=== PATIENT | male | born 1980 | race Caucasian/White ===

== ENCOUNTER 2017-06-27 12:15 | Emergency (ER) | payer SELFPAY ==
[2017-06-27] MEDS ORDERED: Ketorolac Tromethamine 30 MG/ML VIAL ONE (12:35)
[2017-06-27] MEDS ORDERED: Ondansetron HCl/PF 4 MG/2 ML Vial ONE (12:35)
[2017-06-27] MEDS ORDERED: Adacel (T-DAP) 0.5 ML VIAL ONE (12:40)
[2017-06-27 12:59] LABS: ALT (SGPT) 41 U/L (8-55); AST (SGOT) 34 U/L (5-34); Albumin 5.2 g/dL (3.5-5.0); Alkaline Phosphatase 92 U/L (40-150); Anion Gap 16 mmol/L (10-20); BUN (Urea Nitrogen) 12 mg/dL (8.9-20.6); Bilirubin, Total 0.6 mg/dL (0.2-1.2); Calc. Creatinine Clearance 0 mL/min (70-130); Calcium 10.6 mg/dL (7.8-10.44); Carbon Dioxide 23 mmol/L (22-29); Chloride 106 mmol/L (98-107); Estimated GFR-MDRD Greater than 90; Globulin 4.2 g/dL (2.4-3.5); Glucose 110 mg/dL (70-105); Lipase 10 U/L (8-78); Potassium 4.2 mmol/L (3.5-5.1); Protein, Total 9.4 g/dL (6.0-8.3); Sodium 141 mmol/L (136-145)
[2017-06-27 13:00] LABS: #Basophils 0.1 thou/uL (0.0-0.2); #Eosinphils 0.1 thou/uL (0.0-0.7); #Lymphocytes 1.4 thou/uL (1.20-3.40); #Monocytes 0.6 thou/uL (0.11-0.59); #Neutrophils 8.6 thou/uL (1.40-6.50); %Basophils 1.1 % (0.0-1.0); %Eosinophils 0.6 % (0.0-10.0); %Lymphocytes 12.9 % (21.0-51.0); %Monocytes 5.5 % (0.0-10.0); %Neutrophils 79.9 % (42.0-75.0); Band 4 % (5-11); Hemoglobin 17.2 g/dL (14.0-18.0); Lymphocytes 13 % (21-51); MDiff Complete? YES; Mean Corpuscular HGB CONC 34.2 g/dL (32.0-36.0); Mean Corpuscular Hemoglobin 30.5 pg (27.0-31.0); Mean Corpuscular Volume 89.3 fl (80.0-94.0); Mean Platelet Volume 8.9 fL (7.4-10.4); Monocytes 7 % (0-10); Neutrophil 76 % (42-75); Platelet Count 245 thou/uL (130-400); RBC Distribution Width 12.6 % (11.5-14.5); Red Blood Cell (RBC) Count 5.65 mill/uL (4.70-6.10); White Blood Cell (WBC) Count 10.7 thou/uL (4.8-10.8)
== END 2017-06-27 14:05 | disposition home or self-care (01) ==
LOC: BURERS 12:15
DX: K52.9 Noninfective gastroenteritis and colitis, unspecified (principal); H60.02 Abscess of left external ear; F17.210 Nicotine dependence, cigarettes, uncomplicated
CPT/HCPCS: 69000; 80053; 83690; 85025; 90471; 90715; 96361; 96374; 96375; J1885; J2405